=== PATIENT | female | born 1955 | race Caucasian/White ===

== ENCOUNTER 2025-02-21 12:59 | Emergency (ER) | payer BC, OTHER ==
[2025-02-21 13:32] VITALS: BMI 24.4
[2025-02-21] MEDS ORDERED: ACETAMINOPHEN INJECTION 100 ML ONE (14:18)
[2025-02-21] MEDS ORDERED: DIPHTH,PERTUSS(ACELL),TET 0.5 ML DISP.SYRIN IM ONE (14:19)
[2025-02-21] MEDS: DIPHTH,PERTUSS(ACELL),TET 0.5 ML DISP.SYRIN IM ONE (14:25)
[2025-02-21] MEDS: ACETAMINOPHEN 1000 MG/100 ML BAG IVPB ONE (14:25)
[2025-02-21 14:48] LABS: ABSOLUTE IMMATURE GRANULOCYTES 0.06 x10^3/uL (0.0-0.031); BASOPHILS # 0.04 x10^3/uL (0.01-0.08); EOSINOPHIL % 2.5 % (0.7-5.8); EOSINOPHILS # 0.17 x10^3/uL (0.04-0.36); HEMATOCRIT 41.3 % (34.1-44.9); HEMOGLOBIN 13.3 g/dL (11.2-15.7); MCHC 32.2 g/dl (32.2-35.5); MEAN CELL VOLUME 94.1 fl (79.4-94.8); MEAN PLT VOLUME 9.8 fl (9.4-12.3); MONOCYTE # 0.51 x10^3/uL (0.24-0.86); MONOCYTE % 7.6 % (4.7-12.5); PLATELET COUNT 179 x10^3/uL (182-369); RDW 13.9 % (12.4-16.6)
[2025-02-21 15:09] LABS: POTASSIUM 4.5 mmol/L (3.5-5.1)
[2025-02-21 15:11] LABS: CALCIUM 9.1 mg/dL (8.5-10.1)
[2025-02-21 15:12] LABS: ALBUMIN 3.5 g/dl (3.4-5.0)
[2025-02-21 15:13] LABS: BLOOD UREA NITROGEN 20.8 mg/dL (7-18)
[2025-02-21 15:14] LABS: CREATININE 0.7 mg/dL (0.55-1.3)
[2025-02-21 15:16] LABS: BILIRUBIN,TOTAL 0.5 mg/dL (0.2-1); TOT PROT 6.4 g/dl (6.4-8.2)
[2025-02-21 17:06] VITALS: BP 163/77; PULSE 76; RESP 19; TEMP 97.8
== END 2025-02-21 19:05 | disposition left against medical advice (07) ==
LOC: JER 12:59
PROC: 0HQ1XZZ Repair Face Skin, External Approach (ICD-10-PCS; principal; 2025-02-21)
PROC: 3E033NZ Introduction of Analgesics, Hypnotics, Sedatives into Peripheral Vein, Percutaneous Approach (ICD-10-PCS; 2025-02-21)
PROC: 3E0234Z Introduction of Serum, Toxoid and Vaccine into Muscle, Percutaneous Approach (ICD-10-PCS; 2025-02-21)
DX: S01.81XA Laceration without foreign body of other part of head, initial encounter (principal); R55 Syncope and collapse; R22.0 Localized swelling, mass and lump, head; Z23 Encounter for immunization; W18.30XA Fall on same level, unspecified, initial encounter; Y92.830 Public park as the place of occurrence of the external cause; Y93.01 Activity, walking, marching and hiking
CPT/HCPCS: 12013; 36415; 70450-TC; 71046-TC-FY; 72125-TC; 72170-TC-FY; 80053; 84484; 85025; 90471; 90715; 93005; 93010; 96374; 99285-25